=== PATIENT | male | born 1990 | race Caucasian/White ===

== ENCOUNTER 2016-06-09 23:35 | Emergency (ER) | payer OTHER ==
[~2016-06-09] VITALS: Ht 182.9 cm; Wt 76.2 kg
--- NOTE | 2016-06-10 00:10 | ED EYE COMPLAINT ---
History of Present Illness General Chief Complaint: Eye Problems Stated Complaint: "SOMETHING IN L EYE" PER PT Source: patient Exam Limitations: no limitations Vital Signs & Intake/Output Vital Signs & Intake/Output Vital Signs Date Time Temp Pulse Resp B/P Pulse O2 O2 Flow FiO2 Ox Delivery Rate 06/10 0101 Room Air 06/10 0015 96.6 78 18 109/60 96 Room Air Allergies Coded Allergies: NO KNOWN ALLERGIES (06/10/16) Reconcile Medications No Known Home Medications Triage Nurses Notes Reviewed? yes Onset: Abrupt Duration: constant Timing: single episode today Severity: moderate Severity Numbers: 5 HPI: Patient is a 26-year-old male states that 2 hours prior to arrival he had acute onset of left-sided eye irritation and foreign body sensation in which HE tried to flush the eye out and irrigate however he still has mild complaints of right ear dictation. Denies any blurred vision denies any contact lens wearer denies any mechanism injury or trauma or etiology of symptoms. (SARIAH PAPPAS) Past History Travel History Traveled to [facility] past 21 day No Medical History Any Pertinent Medical History? none Surgical History Surgical History: non-contributory Psychosocial History What is your primary language Frisian Family History Hx Contributory? No (SARIAH PAPPAS) Review of Systems Review of Systems Constitutional: Reports: no symptoms. Eyes: Reports: see HPI, foreign body sensation, inflammation, pain. Denies: blindness , blurred vision, drainage, photophobia, shadows, vision change. Ear: Reports: no symptoms. Nose: Reports: no symptoms. Mouth: Reports: no symptoms. Throat: Reports: no symptoms. Respiratory: Reports: no symptoms. Cardiovascular: Reports: no symptoms. GI: Reports: no symptoms. Genitourinary: Reports: no symptoms. Musculoskeletal: Reports: no symptoms. Skin: Reports: no symptoms. Neurological/Psychological: Reports: no symptoms. Hematologic/Endocrine: Reports: no symptoms. Immunologic/Allergic: Reports: no symptoms. All Other Systems: Reviewed and Negative (SARIAH PAPPAS) Physical Exam General Appearance: well developed/nourished, no apparent distress, alert General Inspection: normal inspection Eyelid: normal inspection Conjunctiva/Sclera: normal inspection Cornea: normal inspection, examined w/fluorescein EOM: intact Pupil: normal accommodation, normal pupil, PERRL Anterior Chamber: normal inspection General Inspection: normal inspection Eyelid: normal inspection Conjunctiva/Sclera: normal inspection Cornea: normal inspection, examined w/fluorescein EOM: intact Pupil: normal accommodation, normal pupil, PERRL Anterior Chamber: normal inspection Physical Exam Head: atraumatic Ears: Bilateral: canal normal. Nose: normal inspection Mouth/Throat: normal mouth inspection Neck: normal inspection Neurologic/Psych: no motor/sensory deficits Skin: intact (SARIAH PAPPAS) Progress Differential Diagnosis: corneal abrasion, corneal foreign body, conjunctivitis, detached retina, globe rupture, retinal art./v. occlusion Plan of Care: Patient had unremarkable physical exam No signs of FLUOROSCEINE uptake Patient also had significant improvement after tetracaine was administered to left eye and significant eye irrigation flushing was administered patient was strongly advised to follow-up with valet attendant if symptoms continue. (SARIAH PAPPAS) Departure Departure Disposition: HOME OR SELF CARE Condition: Stable Clinical Impression Primary Impression: Eye irritation Secondary Impressions: Foreign body in eyeball, left Referrals: HAROLDO MANUEL,MARKUS (PCP/Family) ARLETTE MANUEL,ABHIJIT Chaves Additional Instructions: As discussed if symptoms worsen return to emergency room. If no better by tomorrow follow-up with valet attendant Dr. Barker. Departure Forms: Customer Survey General Discharge Information Prescriptions: Current Visit Scripts No Known Home Medications (SARIAH PAPPAS) PA/DIGITAL ACCOUNT EXECUTIVE Co-Sign Statement Statement: ED Attending supervision documentation- [] I saw and evaluated the patient. I have also reviewed all the pertinent lab results and diagnostic results. I agree with the findings and the plan of care as documented in the PA's/DIGITAL ACCOUNT EXECUTIVE's documentation. x[] I have reviewed the ED Record and agree with the PA's/DIGITAL ACCOUNT EXECUTIVE's documentation. [] Additions or exceptions (if any) to the PAs/DIGITAL ACCOUNT EXECUTIVE's note and plan are summarized below: [] (MARISEL MANUEL,SADIA Loja)
[2016-06-10 00:15] VITALS: BP 109/60
== END 2016-06-10 01:01 ==
LOC: ERH 23:35
DX: T15.82XA Foreign body in other and multiple parts of external eye, left eye, initial encounter (principal)

== ENCOUNTER → 2016-06-10 | Emergency (ER) | payer OTHER ==
[~2016-06-10] VITALS: Ht 182.9 cm; Wt 76.2 kg
[2016-06-10 16:59] VITALS: BP 130/67
--- NOTE | 2016-06-10 17:08 | ED GENERAL ADULT ---
History of Present Illness General Chief Complaint: Eye Problems Stated Complaint: LEFT EYE PROBLEMS Vital Signs & Intake/Output Vital Signs & Intake/Output Vital Signs Date Time Temp Pulse Resp B/P Pulse O2 O2 Flow FiO2 Ox Delivery Rate 06/10 1659 98.8 83 20 130/67 96 Room Air Room Air Allergies Coded Allergies: NO KNOWN ALLERGIES (06/10/16) Reconcile Medications No Known Home Medications Triage Note: PT TO ED WITH C/O LEFT EYE PAIN, NO KNOWN INJURY OR FOREIGN OBJECT, SEEN HERE LAST NIGHT, CALLED EYE DOCTOR DR SOLIZ AND THEN DR CHONG, NO CALL BACK, TOLD TO RETURN TO ED BY DR MAX. HPI: 06/10/16 5:20 PM The patient was concerned because he might not be able to see the district branch manager today has instructed. He therefore came to the ER. While he was waiting to be evaluated, the district branch manager called him and will see him now. He is therefore not going to be seen. The chart is to be voided at the poatient's request. He will follow-up with the district branch manager immediately. Past History Travel History Traveled to [place] past 21 day No Medical History Neurological: NONE EENT: NONE Cardiovascular: NONE Respiratory: NONE Gastrointestinal: NONE Hepatic: NONE Renal: NONE Musculoskeletal: NONE Psychiatric: NONE Endocrine: NONE Blood Disorders: NONE Cancer(s): NONE CORPORATE SECRETARY/Reproductive: NONE Surgical History Surgical History: non-contributory Psychosocial History What is your primary language Amharic Tobacco Use: Never used ETOH Use: occasional use Illicit Drug Use: denies illicit drug use Departure Departure Condition: Stable Referrals: MARKUS ZARCO MD (PCP/Family) Departure Forms: Customer Survey General Discharge Information Prescriptions: Current Visit Scripts No Known Home Medications
== END ==
LOC: ERH 16:52
DX: T15.82XA Foreign body in other and multiple parts of external eye, left eye, initial encounter (principal)